=== PATIENT | male | born 1995 | race Caucasian/White ===

== ENCOUNTER 2017-03-30 02:51 | Emergency (ER) | payer OTHER ==
[~2017-03-30] VITALS: Ht 177.8 cm; Wt 59.0 kg
[2017-03-30 03:02] VITALS: BP 132/65
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
--- NOTE | 2017-03-30 03:22 | NUR ---
PATIENT REFUSED TO TREATMENT PLAN AND CARE. DR RIVERS EXPLAINED RISKS AND BENEFITS. PATIENT STILL REFUSED CARE AND VERBALIZED UNDERSTANDING OF RISKS DUE TO REFUSAL. PATIENT LEFT HOSPITAL, ACCOMPANIED BY FRIEND.
== END 2017-03-30 03:20 | disposition left against medical advice (07) ==
LOC: ER 02:51
DX: S09.8XXA Other specified injuries of head, initial encounter (principal); F19.10 Other psychoactive substance abuse, uncomplicated; Y04.2XXA Assault by strike against or bumped into by another person, initial encounter; Y93.89 Activity, other specified; Y92.89 Other specified places as the place of occurrence of the external cause; Y99.8 Other external cause status
CPT/HCPCS: A4606; Z7610

== ENCOUNTER 2019-03-11 00:08 | Emergency (ER) ==
[~2019-03-11] VITALS: Ht 177.8 cm; Wt 59.9 kg
[2019-03-11 00:53] VITALS: BP 122/72
[2019-03-11] MEDS ORDERED: BUPIVACAINE 0.5 % PF 150 MG/30 ML VIAL ONE (01:12)
[2019-03-11] MEDS ORDERED: LIDOCAINE HCL/MPF 1% 30 ML VIAL IJ ONE (01:12)
== END 2019-03-11 02:16 | disposition home or self-care (01) ==
LOC: ER 00:10
DX: L03.032 Cellulitis of left toe (principal); F10.10 Alcohol abuse, uncomplicated; Y90.9 Presence of alcohol in blood, level not specified
CPT/HCPCS: 10060; 99283; J3490 ×2